=== PATIENT | female | born 1970 | race Hispanic/Latino ===

== ENCOUNTER → 2024-11-20 | Outpatient (CLI) | payer MEDICAID ==
--- NOTE | 2024-11-20 16:45 | HMCSR ---
APPROVED REPORT EXAM: Limited two-dimensional echocardiogram with Doppler and color Doppler. INDICATION ICD: C50.412 2D Dimensions RVDd3.2 cmLVOT diam2.0 (1.8-2.4cm)LVED Vol(simp.)60.0 mL LVES Vol(simp.)14.0 mL LVEF(%, simp.)77 % Aortic Valve AoV Vmax6.6 m/[place] GR172.3 mmHgLVOT Vmax5.1 m/s AoV VTI1.0 mAo Mean GR94.6 mmHgLVOT VTI0.60 m YEISON (VMAX)2.51 cm2AVA (VTI) 2.0 cm2 Mitral Valve MV E Lmvi459.4 cm/sDECEL Time43 ms MV A Rdjq146.6 cm/sP 1/2 T33 ms E/A ratio0.6MVA (PHT)6.7 cm2 TDI E/E' Medial7.7E/E' Lateral6.8 Medial E' Peak V18.70 cm/sLateral E' Peak V21.30 cm/s Pulmonary Valve PV Vmax1.6 m/sPV VTI0.24 mPV Mean GR6.3 mmHg PV Peak GR10.7 mmHg Tricuspid Valve TR Vmax3.0 m/sRVSP37.0 mmHg TR Peak GR37.0 mmHg Left Ventricle Left ventricular cavity size is normal. Hyperdynamic There is normal left ventricular wall thickness. LVEF is >65%. Unable to assess due to poor tissue Doppler signals. Right Ventricle The right ventricle is normal size. The right ventricular systolic function is normal. Atria The left atrium size is normal. The right atrium size is normal. Aortic Valve The aortic valve is not well visualized but appears normal. No aortic regurgitation is present. There is no aortic valvular stenosis. Mitral Valve Mitral valve leaflets appear normal. There is no mitral valve regurgitation noted. There is no mitral valve stenosis. Tricuspid Valve The tricuspid valve leaflets appear normal. There is trace of tricuspid valve regurgitation noted. Pulmonic Valve Pulmonic valve is not well visualized. There is no pulmonic valvular regurgitation. Great Vessels The aortic root is normal in size. The IVC is normal in size and collapses >50% with inspiration. Pericardium No pericardial effusion. Other Information Quality : Technically difficult study due to body habitus. Unable to acquire images from upper chest and under breast due irritation of skin/woundRhythm : Tachycardia Conclusion Technically difficult study. Left ventricular cavity size is normal. LVEF is >65% with a hyperdynamic systolic function. Unable to assess Diastology due to poor tissue Doppler signals. The right ventricular systolic function is normal. Both atria appear normal in size. Valves are not well visualized, but there do not appear to be any hemodynamically significant valvula r abnormalities. No pericardial effusion.
== END | disposition home or self-care (01) ==
LOC: RAH 14:10
PROVIDERS: ATTEND Internal Medicine
DX: C50.412 Malignant neoplasm of upper-outer quadrant of left female breast (principal); Z51.11 Encounter for antineoplastic chemotherapy
CPT/HCPCS: 93308